=== PATIENT | female | born 1990 | race Asian ===

== ENCOUNTER 2020-11-22 18:14 | Emergency (ER) | payer OTHER ==
[~2020-11-22] VITALS: Ht 162.6 cm; Wt 75.9 kg
[2020-11-22 18:29] VITALS: TEMP 98.2
[2020-11-22] MEDS ORDERED: NORCO 325 MG-51 TAB PO (20:05)
[2020-11-22] MEDS ORDERED: LEVAQUIN 750MG750 M1 PO (20:06)
[2020-11-22 20:33] VITALS: BP 122/74; PULSE 84
[2020-11-27] MEDS ORDERED: DOXYCYCLINE 10100 MG PO (11:16)
== END 2020-11-22 20:44 | disposition home or self-care (01) ==
LOC: COL.ER 18:14
DX: H60.12 Cellulitis of left external ear (principal); F17.200 Nicotine dependence, unspecified, uncomplicated